=== PATIENT | female | born 1970 | race Caucasian/White ===

== ENCOUNTER 2018-09-08 21:06 | Emergency (ER) | payer OTHER ==
[2018-09-08 21:20] VITALS: BP 146/74; PULSE 79; TEMP 97.8; BMI 26.7
--- NOTE | 2018-09-08 21:20 | PDOC ---
Rapid Medical Evaluation Time Seen by Provider: 09/08/18 21:18 Medical Evaluation: Allergies Allergy/AdvReac Type Severity Reaction Status Date / Time shellfish derived Allergy face and Verified 10/18/14 16:17 throat swelling seasonal Allergy Uncoded 10/18/14 16:14 09/08/18 21:18 Pt presents for suture removal in the scalp s/p hair temple surgery 10 days ago Exam: simple interrupted sutures in the occipital scalp with out signs of secondary infection Orders: Nothing Pt to proceed to the ED for further evaluation Discharge Disposition - Diagnosis Visit for suture removal - Referrals - Patient Instructions - Post Discharge Activity
--- NOTE | 2018-09-08 22:29 | PDOC ---
History of Present Illness - General Chief Complaint: Suture/Staple Removal (other) Stated Complaint: FOLLOW UP TO REMOVE STITCHES Time Seen by Provider: 09/08/18 21:18 - History of Present Illness Initial Comments: 09/08/18 22:27 47-year-old female presents for suture removal from a hair transplant she had done about a week ago. Past History - Past Medical History Allergies/Adverse Reactions: Allergies Allergy/AdvReac Type Severity Reaction Status Date / Time shellfish derived Allergy face and Verified 09/08/18 21:19 throat swelling seasonal Allergy Uncoded 09/08/18 21:19 Home Medications: Ambulatory Orders NK [No Known Home Medication] 09/08/18 Anemia: No Asthma: No Cancer: No Cardiac Disorders: No CVA: No COPD: No CHF: No Dementia: No Diabetes: No GI Disorders: No Disorders: Yes (DRIBBLING) HTN: No Hypercholesterolemia: No Liver Disease: No Seizures: No Thyroid Disease: No - Surgical History Abdominal Surgery: No Appendectomy: No Cardiac Surgery: No Cholecystectomy: No Lung Surgery: No Neurologic Surgery: No Orthopedic Surgery: No - Suicide/Smoking/Psychosocial Hx Smoking History: Never smoked Have you smoked in the past 12 months: No If you are a former smoker, when did you quit?: 2009 Hx Alcohol Use: Yes (SOCIAL) Drug/Substance Use Hx: No Substance Use Type: Alcohol Hx Substance Use Treatment: No Review of Systems - Review of Systems Integumentary: Yes: See HPI *Physical Exam - Vital Signs Last Vital Signs Temp Pulse Resp BP Pulse Ox 97.8 F 79 18 146/74 100 09/08/18 21:17 09/08/18 21:17 09/08/18 21:17 09/08/18 21:17 09/08/18 21:17 - Physical Exam Comments: 09/08/18 22:27 There is a long running baseball stitch from the right parietal scalp to the left parietal scalp the wound is well-healed clean dry and intact Medical Decision Making - Medical Decision Making 09/08/18 22:27 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 *DC/Admit/Observation/Transfer Diagnosis at time of Disposition: Visit for suture removal - Discharge Dispostion Disposition: HOME Condition at time of disposition: Stable Decision to Admit order: No - Referrals Referrals: Britt Bean MD [Primary Care Provider] - - Patient Instructions Printed Discharge Instructions: DI for Suture Removal Additional Instructions: Your sutures were removed today. He should follow up with her operating surgeon for postoperative wound care return to the emergency room should you have any further issues but in general keep the wound clean and dry for the next 48 hours after 48 hours and may wash with soap and water. Do not soak it or go on a bathtub pool or steamer. - Post Discharge Activity
== END 2018-09-08 22:30 | disposition home or self-care (01) ==
LOC: JERFT 21:06
DX: Z48.89 Encounter for other specified surgical aftercare (principal); Z48.02 Encounter for removal of sutures
CPT/HCPCS: 99281-25

== ENCOUNTER 2019-07-25 22:29 | Emergency (ER) | payer OTHER ==
[2019-07-25 22:42] VITALS: BP 131/68
--- NOTE | 2019-07-26 01:02 | PDOC ---
*Physical Exam - Vital Signs Last Vital Signs Temp Pulse Resp BP Pulse Ox 100.9 F H 105 H 19 131/68 97 07/25/19 22:39 07/25/19 22:39 07/25/19 22:39 07/25/19 22:39 07/25/19 22:39 Medical Decision Making - Medical Decision Making 07/26/19 01:02 Patient seen by the advanced practice provider under my supervision. Ancillary testing reviewed as necessary. I agree with plan as outlined by the advanced practice provider. Discharge - Discharge Information Problems reviewed: Yes Clinical Impression/Diagnosis: URI with cough and congestion Disposition: HOME - Additional Discharge Information Prescriptions: Benzonatate [Tessalon Pearls -] 100 mg PO TID PRN #21 capsule PRN Reason: Cough Ibuprofen 600 mg PO QID PRN #20 tablet PRN Reason: Fever - Follow up/Referral Referrals: Britt Bean MD [Primary Care Provider] - - Patient Discharge Instructions Patient Printed Discharge Instructions: DI for Common Cold Additional Instructions: Drink plenty of fluids. 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 Return to the emergency room if symptoms worsen. - Post Discharge Activity Work/Back to School Note: Back to Work
[2019-07-26] MEDS ORDERED: ACETAMINOPHEN 500 MG TABLET (FP) PO ONE (01:11)
--- NOTE | 2019-07-26 01:11 | PDOC ---
History of Present Illness - General Chief Complaint: Cold Symptoms Stated Complaint: COLD SYMPTOMS Time Seen by Provider: 07/26/19 00:54 History Source: Patient - History of Present Illness Initial Comments: 07/26/19 01:37 48-year-old female complaining of nasal congestion, fever, cough for the last 2 days. No past medical history. Daughter is also here with similar symptoms Past History - Past Medical History Allergies/Adverse Reactions: Allergies Allergy/AdvReac Type Severity Reaction Status Date / Time shellfish derived Allergy face and Verified 09/08/18 21:19 throat swelling seasonal Allergy Uncoded 09/08/18 21:19 Home Medications: Ambulatory Orders Benzonatate [Tessalon Pearls -] 100 mg PO TID PRN #21 capsule 07/26/19 Ibuprofen 600 mg PO QID PRN #20 tablet 07/26/19 Anemia: No Asthma: No Cancer: No Cardiac Disorders: No CVA: No COPD: No CHF: No Dementia: No Diabetes: No GI Disorders: No Disorders: Yes (DRIBBLING) HTN: No Hypercholesterolemia: No Liver Disease: No Seizures: No Thyroid Disease: No - Surgical History Abdominal Surgery: No Appendectomy: No Cardiac Surgery: No Cholecystectomy: No Lung Surgery: No Neurologic Surgery: No Orthopedic Surgery: No - Psycho Social/Smoking Cessation Hx Smoking History: Never smoked Have you smoked in the past 12 months: No If you are a former smoker, when did you quit?: 2009 Hx Alcohol Use: No Drug/Substance Use Hx: No Substance Use Type: Alcohol Hx Substance Use Treatment: No *Physical Exam - Vital Signs Last Vital Signs Temp Pulse Resp BP Pulse Ox 100.9 F H 105 H 19 131/68 97 07/25/19 22:39 07/25/19 22:39 07/25/19 22:39 07/25/19 22:39 07/25/19 22:39 - Physical Exam HEENT: positive: Pharyngeal Erythema Respiratory/Chest: positive: Lungs Clear, Normal Breath Sounds Gastrointestinal/Abdominal: positive: Normal Bowel Sounds, Soft. negative: Tender ED Progress Note - Progress Note Progress Note: A: uri with cough/ pharyngitis P: supportive care influenza negative Discharge - Discharge Information Problems reviewed: Yes Clinical Impression/Diagnosis: URI with cough and congestion Disposition: HOME - Additional Discharge Information Prescriptions: Benzonatate [Tessalon Pearls -] 100 mg PO TID PRN #21 capsule PRN Reason: Cough Ibuprofen 600 mg PO QID PRN #20 tablet PRN Reason: Fever - Follow up/Referral Referrals: Britt Bean MD [Primary Care Provider] - - Patient Discharge Instructions Patient Printed Discharge Instructions: DI for Common Cold Additional Instructions: Drink plenty of fluids. 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 Return to the emergency room if symptoms worsen. - Post Discharge Activity Work/Back to School Note: Back to Work
[2019-07-26] MEDS ORDERED: ACETAMINOPHEN 500 MG TABLET (FP) ONE (01:19)
[2019-07-26 02:16] VITALS: PULSE 92; TEMP 99.3
== END 2019-07-26 02:21 | disposition home or self-care (01) ==
LOC: JER 22:29
DX: J06.9 Acute upper respiratory infection, unspecified (principal); J02.9 Acute pharyngitis, unspecified; Z91.013 Allergy to seafood
CPT/HCPCS: 87804; 99283-25

== ENCOUNTER 2020-01-13 05:15 | Day surgery (SDC) | payer OTHER ==
[2020-01-11 17:39] VITALS: BMI 31.4
[2020-01-13] MEDS ORDERED: MIDAZOLAM HCL 2 MG/2 ML SINGLE DOSE VIAL ONE (08:55)
[2020-01-13] MEDS ORDERED: SUCCINYLCHOLINE CHLORIDE 200 MG/10 ML SYRINGE ONE (08:55)
[2020-01-13] MEDS ORDERED: PROPOFOL 20 ML ONE ×2 (08:55)
--- NOTE | 2020-01-13 09:13 | HP ---
History & Physical Update - History History: No Change - Physical Physical: No Change - Assessment Assessment: No Change - Plan Plan: No Change
[2020-01-13] MEDS ORDERED: LIDOCAINE 1%/EPI 1:100000 (20 ML MULTI DOSE VIAL) ONE ×2 (09:35→10:11)
[2020-01-13] MEDS ORDERED: BUPIVACAINE HCL 50 ML ONE (09:35)
[2020-01-13] MEDS ORDERED: ceFAZolin SODIUM 1 GM VIAL IVPB ONE (10:00)
[2020-01-13] MEDS ORDERED: LIDOCAINE 1%/EPI 1:100000 (20 ML MULTI DOSE VIAL) IJ ONE (10:17)
[2020-01-13] MEDS ORDERED: ONDANSETRON 4 MG/2 ML VIAL IVPUSH PRN (11:23)
[2020-01-13] MEDS ORDERED: oxyCODONE HCL 5 MG TABLET PO PRN (11:23)
[2020-01-13] MEDS ORDERED: LACTATED RINGERS SOLUTION 1,000 ML IV SCH (11:30)
--- NOTE | 2020-01-13 11:50 | OP ---
Operative Note - Note: Operative Date: 01/13/20 Pre-Operative Diagnosis: bilateral axillary masses Operation: Excision biopsy, bilateral axillary masses Findings: fibrofatty axillary masses Post-Operative Diagnosis: Same as Pre-op Surgeon: Ismael Pinzon Anesthesia: General Specimens Removed: soft tissue masses of both axillae Estimated Blood Loss (mls): 5 Operative Report Dictated: Yes
[2020-01-13] MEDS ORDERED: IBUPROFEN 400 MG TABLET (FP) PO ONE (13:32)
--- NOTE | 2020-01-13 14:22 | OP ---
DATE OF OPERATION: 01/13/2020 PROCEDURE: Excisional biopsy of bilateral axillary masses. PREOPERATIVE DIAGNOSIS: Bilateral axillary masses. POSTOPERATIVE DIAGNOSIS: Bilateral axillary masses. SURGEON: Ismael Pinzon MD ANESTHESIA: General by laryngeal mask airway. FINDINGS OF PROCEDURE: This is a 49-year-old female who presents with slowly growing soft tissue masses of both axillae, the right side which was about 8 x 4 cm and the left side was about 6 x 3 cm in size. So patient desired excisional biopsy of the masses and consent was obtained after discussing the risks, benefits and alternatives to the procedure. DESCRIPTION OF PROCEDURE: Patient was brought to the operating room and placed in supine position with both arms abducted 90 degrees and with rolls under both shoulders. General anesthesia by laryngeal mask airway was administered. The operative sites were prepped and draped in the usual sterile standard fashion. The right axilla was addressed first by making an 8 x 3-cm elliptical incision using scalpel blade No. 10. This dissection was carried down through subcutaneous tissue using Bovie cautery. The mass together with the ellipse of skin which was about 8 x 4 x 4 cm in aggregate size was completely excised just to the level above the clavipectoral fascia. Hemostasis was achieved using Bovie cautery. The wounds were then closed with interrupted Vicryl 3-0 suture for the subcutaneous layer and the dermis and subcuticular Biosyn 4-0 suture for the skin. The wound closure was reinforced with Steri-Strips and covered with pressure dressing. The left axillary mass was then excised by making a 6 x 3-cm elliptical incision. Using the same technique the mass together with the ellipse of skin was completely excised down to the level just above the clavipectoral fascia. The wound was also closed in the same manner with interrupted Polysorb 3-0 suture for the subcutaneous layer and dermis and continuous Biosyn 4-0 suture for the subcuticular layer. The wound closure was reinforced with Steri-Strips and covered with pressure dressing. The patient was successfully extubated and transferred to the postanesthesia care unit in satisfactory condition. Estimated blood loss was about 5 mL. Wound class clean. The patient received 1 g of Ancef prior to the start of the procedure. Lucy [id number]
[2020-01-13 15:09] VITALS: BP 127/68; PULSE 75; TEMP 97.8
--- NOTE | 2020-01-17 16:40 | PATH ---
Surgical Pathology Report Patient Name: [facility]ERHANE BRONSON [facility]. Rec. #: [id number] /Age/Gender: 1970 (Age: 49) / F Account: [id number] Location: [facility] SURGICAL Taken: 01/13/2020 Received: 01/13/2020 Reported: 01/17/2020 Physicians: Ismael Pinzon M.D. Specimen(s) Received A: MASS RIGHT AXILLA B: MASS LEFT AXILLA Clinical History Bilateral soft tissue mass Final Diagnosis A. MASS FROM RIGHT AXILLA, EXCISION: BENIGN BREAST TISSUE ADMIXED WITH MATURE ADIPOSE TISSUE. OVERLYING PORTION OF SKIN WITH NO SIGNIFICANT PATHOLOGIC CHANGE. SEE COMMENT. B. MASS FROM LEFT AXILLA, EXCISION: BENIGN BREAST TISSUE WITH FOCAL STROMAL FIBROSIS, ADMIXED WITH MATURE ADIPOSE TISSUE. OVERLYING PORTION OF SKIN WITH NO SIGNIFICANT PATHOLOGIC CHANGE. SEE COMMENT. Comment: Findings are consistent with axillary accessory breast tissue surrounded by abundant mature adipose. Suggest clinical correlation. Electronically Signed Monica Lino M.D. Gross Description A. Received in formalin labeled "soft tissue mass right axilla," is a 9.0 x 5.0 x 4.0 cm aranda-yellow, irregular, unoriented portion of yellow, lobulated adipose tissue. The specimen is surfaced by a 7.0 x 2.6 cm aranda, elliptical, unremarkable portion of skin. Separately received within the same container is a 5.0 x 3.5 x 1.0 cm aggregate of yellow, lobulated adipose tissue. No areas of hemorrhage or necrosis are identified. Jewel Stripper sections are submitted in 4 cassettes. B. Received in formalin labeled "mass soft tissue left axilla," is a 7.0 x 4.5 x 4.5 cm aranda-yellow, irregular, unoriented portion of yellow, lobulated adipose tissue. The specimen is surfaced by a 6.4 x 2.3 cm aranda, elliptical, unremarkable portion of skin. Sectioning reveals unremarkable yellow lobulated adipose tissue. No areas of hemorrhage or necrosis are identified. Jewel Stripper sections are submitted in 3 cassettes. DL/01/13/2020 saudi/01/13/2020
== END 2020-01-13 14:45 | disposition home or self-care (01) ==
LOC: JASU-SURG 05:15
PROVIDERS: ATTEND Surgery
PROC: 0JB40ZZ Excision of Right Neck Subcutaneous Tissue and Fascia, Open Approach (ICD-10-PCS; 2020-01-13)
PROC: 0JB50ZZ Excision of Left Neck Subcutaneous Tissue and Fascia, Open Approach (ICD-10-PCS; principal; 2020-01-13 09:30)
DX: N63.31 Unspecified lump in axillary tail of the right breast (principal); N63.32 Unspecified lump in axillary tail of the left breast; N60.32 Fibrosclerosis of left breast
CPT/HCPCS: 84703; 88305-TC; 94760

== ENCOUNTER 2022-05-07 17:15 | Emergency (ER) | payer OTHER ==
[2022-05-07 17:21] VITALS: BP 145/88; PULSE 77; RESP 17; TEMP 97.9; BMI 27.1
[2022-05-07] MEDS ORDERED: FAMOTIDINE 20 MG TABLET PO ONE (17:39)
[2022-05-07] MEDS ORDERED: MAG HYDROX/AL HYDROX/SIMETH -MYLANTA- ORAL SUSPENSION PO ONE (17:39)
[2022-05-07] MEDS ORDERED: ACETAMINOPHEN 500 MG TABLET (FP) PO ONE (17:39)
[2022-05-07] MEDS ORDERED: FAMOTIDINE 20 MG TABLET ONE (17:57)
[2022-05-07] MEDS ORDERED: MAG HYDROX/AL HYDROX/SIMETH 30 ML UNIT-DOSE CUP ONE (17:58)
[2022-05-07] MEDS ORDERED: ACETAMINOPHEN 325 MG TABLET (FP) ONE (17:58)
[2022-05-07 18:48] LABS: BASO % 0.7 % (0-2.0); EOS % 2.6 % (0-4.5); HEMATOCRIT 33.1 % (32.4-45.2); HEMOGLOBIN 10.9 GM/dL (10.7-15.3); LYMPH % 40.6 % (8-40); MCH 28.2 pg (25.7-33.7); MCHC 33.1 g/dl (32.0-36.0); MEAN CELL VOLUME 85.2 fl (80-96); MEAN PLT VOLUME 9.4 fl (7.5-11.1); MONO % 10.3 % (3.8-10.2); NEUT % 45.8 % (42.8-82.8); PLATELET COUNT 266 10^3/uL (134-434); RBC 3.88 M/mm3 (3.60-5.2); RDW 17.2 % (11.6-15.6); WHITE BLOOD COUNT 4.2 K/mm3 (4.0-10.0)
[2022-05-07 19:08] LABS: ALBUMIN 3.5 g/dl (3.4-5.0); BLOOD UREA NITROGEN 11.8 mg/dL (7-18)
[2022-05-07 19:11] LABS: CREATININE 0.9 mg/dL (0.55-1.3)
[2022-05-07 19:12] LABS: BILIRUBIN,TOTAL 0.5 mg/dL (0.2-1)
[2022-05-07 19:13] LABS: TOT PROT 6.7 g/dl (6.4-8.2)
== END 2022-05-07 21:26 | disposition home or self-care (01) ==
LOC: JER 17:15
DX: R07.9 Chest pain, unspecified (principal)
CPT/HCPCS: 36415; 71046-TC-FY; 80053; 84484; 84703; 85025; 93005; 93010; 99285-25

== ENCOUNTER 2023-12-16 09:34 | Day surgery (SDC) | payer OTHER ==
[2023-12-10 10:48] VITALS: BMI 29.2
[2023-12-16 11:32] VITALS: TEMP 97.1
[2023-12-16 11:53] VITALS: BP 119/70; PULSE 60; RESP 18
== END 2023-12-16 12:10 | disposition home or self-care (01) ==
LOC: FASU-ENDO 09:34
PROVIDERS: ATTEND Internal Medicine Gastroenterology
PROC: 0DBN8ZX Excision of Sigmoid Colon, Via Natural or Artificial Opening Endoscopic, Diagnostic (ICD-10-PCS; principal; 2023-12-16 10:44)
DX: K92.1 Melena (principal); K63.5 Polyp of colon; K64.1 Second degree hemorrhoids
CPT/HCPCS: 81025; 88305-TC

== ENCOUNTER 2024-03-23 09:42 | Day surgery (SDC) | payer OTHER ==
[2024-03-15 15:35] VITALS: BMI 29.2
[2024-03-23 11:39] VITALS: PULSE 68; TEMP 97.1
[2024-03-23 11:42] VITALS: BP 112/64; RESP 19
== END 2024-03-23 11:56 | disposition home or self-care (01) ==
LOC: FASU-ENDO 09:42
PROVIDERS: ATTEND Internal Medicine Gastroenterology
PROC: 0DB78ZX Excision of Stomach, Pylorus, Via Natural or Artificial Opening Endoscopic, Diagnostic (ICD-10-PCS; 2024-03-23)
PROC: 0DB68ZX Excision of Stomach, Via Natural or Artificial Opening Endoscopic, Diagnostic (ICD-10-PCS; 2024-03-23)
PROC: 0DB48ZX Excision of Esophagogastric Junction, Via Natural or Artificial Opening Endoscopic, Diagnostic (ICD-10-PCS; 2024-03-23)
PROC: 0DB98ZX Excision of Duodenum, Via Natural or Artificial Opening Endoscopic, Diagnostic (ICD-10-PCS; principal; 2024-03-23 11:07)
DX: K21.00 Gastro-esophageal reflux disease with esophagitis, without bleeding (principal); K29.50 Unspecified chronic gastritis without bleeding; K31.7 Polyp of stomach and duodenum
CPT/HCPCS: 81025; 88305-TC; 88342-TC